=== PATIENT | male | born 1985 | race Caucasian/White ===

== ENCOUNTER 2025-05-14 08:48 | Day surgery (SDC) | payer OTHER ==
[2025-05-10 10:55] VITALS: BMI 26.2
[2025-05-14] MEDS ORDERED: Tranexamic Acid 1,000 MG/10 ML VIAL ONE (08:54)
[2025-05-14] MEDS ORDERED: Lidocaine 1% w/Epinephrine 1:200K 30 ML VIAL ONE (08:55)
[2025-05-14] MEDS ORDERED: AFRIN NASAL MIST 15 ML BOT ONE ×2 (08:55→09:28)
[2025-05-14] MEDS ORDERED: CEFAZOLIN 2 GM VIAL ONE (08:55)
[2025-05-14] MEDS ORDERED: SUGAMMADEX SODIUM 200 MG/2 ML VIAL ONE (08:57)
[2025-05-14] MEDS ORDERED: Rocuronium Bromide 10 MG/ML (10ML VIAL) ONE (08:57)
[2025-05-14] MEDS ORDERED: PROPOFOL 40 ML ONE (08:57)
[2025-05-14] MEDS ORDERED: Ondansetron PF 4 MG/2 ML Vial ONE (08:57)
[2025-05-14] MEDS ORDERED: PROPOFOL 20 ML ONE (11:40)
[2025-05-14] MEDS ORDERED: Oxymetazoline HCl 0.05% (15 ML) ONE (12:28)
== END 2025-05-14 17:03 | disposition home or self-care (01) ==
LOC: CSHSDC 08:48
PROVIDERS: ATTEND Otolaryngology Otolaryngic Allergy
DX: J34.2 Deviated nasal septum (principal); J32.4 Chronic pansinusitis; J33.9 Nasal polyp, unspecified; J34.3 Hypertrophy of nasal turbinates; J30.9 Allergic rhinitis, unspecified; J30.2 Other seasonal allergic rhinitis
CPT/HCPCS: 88305; 88311; J0169; J1100; J2250; J2704; J3010; J3301